=== PATIENT | female | born 1955 | race American Indian/Alaskan Native ===

== ENCOUNTER 2017-08-05 06:06 | Day surgery (SDC) | payer OTHER ==
[2017-07-29 11:16] VITALS: BMI 30.5
[2017-08-05] MEDS ORDERED: Iodixanol 320 MG/ML 200 ML BOTTLE IV ONE (06:47)
[2017-08-05] MEDS ORDERED: Phenylephrine 10 mg/ml Inj ONE (06:47)
[2017-08-05] MEDS ORDERED: Iodixanol 320 MG/ML 100 ML BOTTLE IV ONE (06:47)
[2017-08-05] MEDS ORDERED: Lidocaine 2% Inj (20ml) ONE (06:47)
[2017-08-05] MEDS ORDERED: Nitroglycerin 50mg in D5W 50 MG/250 ML BOTTLE IV ONE (06:48)
[2017-08-05] MEDS ORDERED: HEPARIN SODIUM/NS 2,000 ML IV ONE (06:48)
[2017-08-05] MEDS ORDERED: Iohexol 350mgl/ml 50 ML ONE (06:48)
[2017-08-05 06:51] LABS: BASO # 0.04 K/mm3 (0.0-2.0); BASO % 0.5 % (0.0-3.0); EOS # 0.4 (0.0-0.7); EOS % 4.5 % (1.5-5.0); GRAN # 3.85 (1.4-6.5); GRAN % 48.3 % (50.0-68.0); HEMOGLOBIN 12.7 g/dL (12.0-16.0); LYMPH # 3.1 (1.2-3.4); LYMPH % 38.6 % (22.0-35.0); MEAN CELL VOLUME 68.4 fl (80.0-105.0); MEAN CORPUSCULAR HEMOGLOBIN 21.1 pg (25.0-35.0); MEAN CORPUSCULAR HGB CONC 30.8 g/dl (31.0-37.0); MEAN PLATELET VOLUME 10.5 fl (7.0-11.0); MONO # 0.7 (0.1-0.6); MONO % 8.1 % (1.0-6.0); RBC 6.02 10^6/uL (3.5-6.1); RED CELL DISTRIBUTION WIDTH 15.4 % (11.5-14.5)
[2017-08-05 07:04] LABS: CALCIUM 10.3 mg/dL (8.4-10.5)
[2017-08-05 07:19] LABS: INR 1.09 (0.93-1.08); PARTIAL THROMBOPLASTIN TIME 30.9 Seconds (25.1-36.5); PROTHROMBIN TIME 12.6 SECONDS (9.4-12.5)
[2017-08-05] MEDS ORDERED: Midazolam 2 MG/2 ML VIAL ONE (08:04)
[2017-08-05] MEDS ORDERED: Iodixanol 320 mg/ml 150 ml Bottle IV ONE (08:07)
[2017-08-05] MEDS ORDERED: Sodium Chloride 0.45% 1,000 ML IV SCH ×2 (09:30→09:48)
--- NOTE | 2017-08-05 09:48 | CARD ---
APPROVED REPORT EKG Measurement Heart [id number] WA 170P54 [id number] <Conclusion> Normal sinus rhythm Possible Left atrial enlargement Cannot rule out Anterior infarct, age undetermined Abnormal ECG
[2017-08-05] MEDS: Insulin Reg-HIGH-Coverage SC SCH ×3 (11:30→23:01)
--- NOTE | 2017-08-05 17:18 | HP ---
HISTORY OF PRESENT ILLNESS: I know Macrina very well. She had an outpatient stress test, which was indeterminate. She has been having some shortness of breath from time to time, ended up with Dr Smith, had a cardiac cath and a stent placement this morning. I see her in the cardiac laborer tree tapping. She is resting comfortably in bed. PAST MEDICAL HISTORY: Diabetes, [place], CAD, hyperlipidemia, hypertension, anemia. She also has constipation. She is menopausal. PAST SURGICAL HISTORY: She had a hysterectomy 11 years ago for fibroids, cardiac cath with one stent 5 years ago. FAMILY HISTORY: Cancer. Also cancer with the mother. SOCIAL HISTORY: No smoking, no drinking, no drugs. REVIEW OF SYSTEMS: CONSTITUTIONAL: No acute vision or hearing changes. She has had some chest discomfort, some shortness of breath. Just not feeling well. Had a positive stress test. ABDOMEN: No nausea or vomiting. EXTREMITIES: No edema. PHYSICAL EXAMINATION: GENERAL: She wears glasses. Alert, awake and oriented x3. She is comfortable at this time. She has lied flat for 6 hours. Not anxious. Not depressed. No tremors. Understands what is going on. VITAL SIGNS: Temperature 98.2, 80 pulse, respiratory rate 20, 94% O2 sat, blood pressure is 200/137. Cardiology will address that and will adjust her medications. HEENT: Head is atraumatic, normocephalic. Throat is moist. NECK: Supple. HEART: Regular rate. LUNGS: Decreased breath sounds, but clear to auscultation. ABDOMEN: Soft, nontender. Positive bowel sounds. EXTREMITIES: No edema. ASSESSMENT: She is lying flat in the [facility], waiting to go to her room status post cardiac cath with stent placement. She has coronary artery disease. She also had some blood test done. LABORATORY DATA: She has 141 sodium, potassium 4.5, BUN is 23, creatinine 1.3, which is little bit up, GFR is 41, sugar is 279, calcium is 10.3. INR is 1.09. White count 8, 12.7 hemoglobin, 41.2 hematocrit with 325 platelets. PLAN: She will be moved to her room. She has lied flat for 6 hours. She has had a stent placement for CAD. She has renal insufficiency and diabetes. She will have IV fluids and insulin coverage. We will start up her medications tomorrow for diabetes and we will see what Dr. Smith, the home health aid, wants to do about her medications and her high blood pressure. I discussed this with family and the patient at length. Kraig Thomas DO
--- NOTE | 2017-08-05 18:45 | CARDCATH ---
PROCEDURE DATE: 08/05/2017 HISTORY: The patient is a 62-year-old woman who presents with an abnormal stress test. She has had a documented coronary artery disease and PTCA in the past. Her stress test reveals markedly depressed LV as well as new ischemic areas. Because of this, a cardiac catheterization was recommended. PROCEDURE: Left heart catheterization with coronary arteriography, left ventriculogram, followed by PTCA and stent of the LAD. The right femoral artery was cannulated with a 6-[place] sheath. There were no complications. I performed moderate sedation which included the presence of an independent trained observer who assisted in monitoring the patient's level of consciousness and physiologic status. After administration of Versed and fentanyl, my intra-service time was 30 minutes. The findings on catheterization revealed a left ventricle that was dilated and diffusely hypokinetic. Estimated ejection fraction is between 20% and 25%. There was no mitral regurgitation. Her coronary anatomy revealed a right dominant circulation. The RCA revealed diffuse intimal irregularities throughout its course. In the distal portion of the posterolateral branch, there is a 60% stenosis noted. The left main artery was unremarkable. The LAD was diffusely diseased with multiple critical lesions including a 70% mid LAD lesion as well as an 80% distal lesion. The first septal churn drill operator revealed 80% to 90% stenoses in its proximal portion. The circumflex artery and obtuse marginal branches revealed diffuse intimal irregularities. The first obtuse marginal branch revealed a patent stent in the midportion of the circumflex, there is a 90% stenosis noted. The patient was started on intravenous Angiomax on the fluoroscopic guide, the guiding catheter was placed in the ostium of the left main artery. An 0.014 ATW wire was used to cross the two lesions in the LAD. Drug-eluting stents were placed in the distal LAD as well as in the mid LAD stenoses. Each stent was at 2.5 in diameter and 8 mm in length. After balloon deflation and removal, repeat coronary arteriography revealed an excellent result with no residual stenosis and SULLY III flow. The wire was then brought back and placed into the septal churn drill operator. The septal churn drill operator lesion was first predilated with a 2.0 balloon, followed by PTCA and stent with a 2.25 x 8 mm drug-eluting stent. Repeat coronary arteriography revealed an excellent result with no residual stenosis and SULLY III flow. Manual compression was used to close the femoral artery site. In summary, the procedure was successful for PTCA and stent of 3 lesions in the LAD with drug-eluting stents. The first septal churn drill operator, the mid LAD as well as the distal portion of the LAD was stented. Cardiac catheterization reveals 3 lesions in the LAD as well as a critical lesion in the mid circumflex artery and a patent stent in the obtuse marginal branch. LV function revealed an EF of 20% to 25%. Given these findings, the patient will need to remain on aspirin indefinitely and Plavix for at least a year and undergo a strict cardiac risk reduction program. We will bring her back in 1 week for PTCA and stent of the circumflex artery. Dustin Smith MD
[2017-08-05 19:14] VITALS: RESP 18
--- NOTE | 2017-08-05 22:51 | CARD ---
APPROVED REPORT EKG Measurement Heart [id number] ID [id number] <Conclusion> Normal sinus rhythm Nonspecific T wave abnormality Abnormal ECG
[2017-08-06 05:50] VITALS: O2SAT 97
[2017-08-06 06:43] LABS: BASO # 0.01 K/mm3 (0.0-2.0); BASO % 0.1 % (0.0-3.0); EOS # 0.3 (0.0-0.7); EOS % 3.4 % (1.5-5.0); GRAN # 3.95 (1.4-6.5); GRAN % 53.9 % (50.0-68.0); HEMOGLOBIN 10.8 g/dL (12.0-16.0); LYMPH # 2.3 (1.2-3.4); LYMPH % 31.8 % (22.0-35.0); MEAN CORPUSCULAR HEMOGLOBIN 20.9 pg (25.0-35.0); MEAN CORPUSCULAR HGB CONC 30.8 g/dl (31.0-37.0); MONO # 0.8 (0.1-0.6); MONO % 10.8 % (1.0-6.0); RBC 5.16 10^6/uL (3.5-6.1); RED CELL DISTRIBUTION WIDTH 15.3 % (11.5-14.5); WHITE BLOOD COUNT 7.3 10^3/ul (4.5-11.0)
[2017-08-06 07:04] LABS: ALBUMIN 2.8 g/dL (3.0-4.8); ALT/SGPT 37 U/L (7-56); AST/SGOT 23 U/L (14-36); BLOOD UREA NITROGEN 16 mg/dL (7-21); CALCIUM 9.2 mg/dL (8.4-10.5); GFR AFRICAN-AMERICAN > 60; GFR NON-AFRICAN AMERICAN 50
[2017-08-06] MEDS: Insulin Reg-HIGH-Coverage SC SCH ×2 (08:11→13:06)
[2017-08-06 10:25] LABS: PLATELET COUNT 282 10^3/uL (120.0-450.0)
[2017-08-06 11:51] VITALS: BP 130/84; TEMP 98.2
--- NOTE | 2017-08-06 13:57 | PN ---
SUBJECTIVE: I am hoping that she will be able to be discharged today. She is presently comfortably in bed. Her blood pressure is a little bit high. I am going to add Norvasc 5 mg to her medication list. She is eating okay. PHYSICAL EXAMINATION VITAL SIGNS: Temperature 98, pulse 77, blood pressure 149/95. I put her on Norvasc 5 mg. Respiratory rate 18, oxygen saturation 97% on nasal cannula. HEENT: Head is atraumatic, normocephalic. HEART: Regular rate. LUNGS: Clear to auscultation. ABDOMEN: Soft. EXTREMITIES: No edema. MEDICATIONS: She will be on Ecotrin, insulin, Lipitor, Plavix and now, Norvasc. LABORATORY DATA: She has sodium 139, potassium 4.1, BUN 16, creatinine 1.1 and better, GFR is 50, sugar is 197, calcium is 9.2, total bilirubin is 0.5, AST is 22, ALT is 37, total protein is 5.8, INR is 1.09. White count 7.3, hemoglobin 10.8, hematocrit 35.1 with platelets 282,000. She is usually on metformin for the diabetes. We will continue that once she leaves the hospital but because of the IV dye, we held it and her blood sugar only went to 197, 266, 264 and she is on insulin coverage; so, when she leaves, start her metformin again. I am hoping she will be discharged today. She should start also the Norvasc. We will see how she does with that limiting the blood pressure. I will talk to Dr. Smith. had a stent replacement and now hypertension and diabetes. Kraig Thomas DO MTDDutch
--- NOTE | 2017-08-06 14:02 | PN ---
DATE: 08/06/2017 CARDIOLOGY FOLLOWUP SUBJECTIVE: The patient is chest pain free. PHYSICAL EXAMINATION: VITAL SIGNS: Blood pressure is 130/84, heart rates in the 70s. NECK: Negative JVD. LUNGS: Without rales. HEART: Reveals S1, S2. EXTREMITIES: Without edema. The right groin site is stable. LABORATORY DATA: Hemoglobin is 10.8. Chemistries: BUN and creatinine are unremarkable. Glucose is 197. IMPRESSION: 1. Stable post percutaneous transluminal coronary angioplasty and stent to 3 lesions in the left anterior descending. 2. Multivessel coronary artery disease. 3. Diabetes mellitus. 4. Hypercholesterolemia. 5. Hypertension. PLAN: Given these findings, the patient is stable for discharge. We will bring the patient back in 1 week for PTCA and stent of 90% circumflex artery. Dustin Smith MD
[2017-08-06 14:49] VITALS: PULSE 86
--- NOTE | 2017-08-06 19:47 | CARD ---
APPROVED REPORT EKG Measurement Heart [id number] [place] 162P57 [id number] <Conclusion> Normal sinus rhythm Possible Left atrial enlargement Nonspecific T wave abnormality Abnormal ECG
== END 2017-08-06 18:00 | disposition home or self-care (01) ==
LOC: CATH 06:06 → 2RNO 09:27 → CATH 08-06 18:00
PROVIDERS: ATTEND Family Medicine
DX: I25.10 Atherosclerotic heart disease of native coronary artery without angina pectoris (principal); I10 Essential (primary) hypertension; E11.9 Type 2 diabetes mellitus without complications; E78.00 Pure hypercholesterolemia, unspecified; D64.9 Anemia, unspecified; K59.00 Constipation, unspecified; Z78.0 Asymptomatic menopausal state; Z95.5 Presence of coronary angioplasty implant and graft; Z90.710 Acquired absence of both cervix and uterus
CPT/HCPCS: 36415 ×2; 80048; 80053; 82948 ×2; 85025 ×2; 85027; 85610; 85730; 86850; 86900; 93005 ×2; 93458; 99152; 99153; C1725; C1769 ×2; C1874 ×2; C1887 ×3; C2629; C9600; J0360; J0583; J1644; J2250; J2370; J3010; J7030; J7040; Q9967

== ENCOUNTER 2017-08-12 06:27 | Day surgery (SDC) | payer OTHER ==
[2017-08-12] MEDS ORDERED: Lidocaine 2% Inj (20ml) ONE (06:53)
[2017-08-12] MEDS ORDERED: Phenylephrine 10 mg/ml Inj ONE (06:53)
[2017-08-12] MEDS ORDERED: Midazolam 2 MG/2 ML VIAL ONE ×2 (06:54→07:44)
[2017-08-12] MEDS ORDERED: Iohexol 350mgl/ml 50 ML ONE (06:55)
[2017-08-12] MEDS ORDERED: Nitroglycerin 50mg in D5W 50 MG/250 ML BOTTLE IV ONE (06:55)
[2017-08-12] MEDS ORDERED: Iodixanol 320 MG/ML 100 ML BOTTLE IV ONE (06:55)
[2017-08-12] MEDS ORDERED: Iodixanol 320 MG/ML 200 ML BOTTLE IV ONE (06:55)
[2017-08-12] MEDS ORDERED: HEPARIN SODIUM/NS 2,000 ML IV ONE (06:55)
[2017-08-12 07:12] LABS: BASO # 0.03 K/mm3 (0.0-2.0); BASO % 0.4 % (0.0-3.0); EOS # 0.4 (0.0-0.7); EOS % 6.3 % (1.5-5.0); GRAN # 3.59 (1.4-6.5); GRAN % 53.8 % (50.0-68.0); HEMOGLOBIN 11.9 g/dL (12.0-16.0); LYMPH % 29.9 % (22.0-35.0); MEAN CELL VOLUME 68.7 fl (80.0-105.0); MEAN CORPUSCULAR HEMOGLOBIN 20.7 pg (25.0-35.0); MEAN CORPUSCULAR HGB CONC 30.1 g/dl (31.0-37.0); MEAN PLATELET VOLUME 10.2 fl (7.0-11.0); MONO # 0.6 (0.1-0.6); MONO % 9.6 % (1.0-6.0); RBC 5.75 10^6/uL (3.5-6.1); RED CELL DISTRIBUTION WIDTH 15.5 % (11.5-14.5); WHITE BLOOD COUNT 6.7 10^3/ul (4.5-11.0)
[2017-08-12 07:21] LABS: INR 1.05 (0.93-1.08); PARTIAL THROMBOPLASTIN TIME 30.9 Seconds (25.1-36.5); PROTHROMBIN TIME 12.1 SECONDS (9.4-12.5)
[2017-08-12] MEDS ORDERED: Sodium Chloride 0.9% 1,000 ML IV SCH (09:00)
--- NOTE | 2017-08-12 10:11 | CARD ---
APPROVED REPORT EKG Measurement Heart [id number] RI 174P55 [id number] <Conclusion> Normal sinus rhythm PRWP NSSTW changes No change
--- NOTE | 2017-08-12 10:49 | CARDCATH ---
PROCEDURE DATE: 08/12/2017 CARDIAC CATHETERIZATION AND PTCA HISTORY: The patient is a 62-year-old woman with multiple cardiac risk factors who was found to have multivessel CAD. She underwent three stents last week and presents for PTCA and stent of the circumflex artery. PROCEDURE: Coronary arteriography followed by PTCA and stent of the circumflex artery. The right femoral artery was cannulated with a 6-[place] sheath. There were no complications. The findings on catheterization revealed patent stents in the septal gas mask inspector, mid LAD as well as the distal LAD. The circumflex artery had a complex long 90% stenoses in the mid circumflex artery. I performed moderate sedation which included the presence of an independent trained observer that assisted in monitoring the patient's level of consciousness and physiologic status. After administration of Versed and fentanyl, my intra-service time was 30 minutes. The patient was started on intravenous Angiomax on the fluoroscopic guide, the guiding catheter was placed in the ostium of the left main artery. An 0.014 ATW wire was used to cross the multiple lesions in the circumflex artery. A 2.0 balloon was utilized to predilate the lesions at 14 atmospheres of pressure. A 200 mcg of IC nitroglycerin was given. This was followed by placement of 2.25 x 15 mm drug-eluting stent followed by a 2.25 x 12 mm drug-eluting stent. Both were deployed at 12 atmospheres of pressure. Repeat coronary arteriography revealed an excellent result with no residual stenosis and SULLY III flow. The patient tolerated the procedure well. Manual compression was used to close the femoral artery site. In summary, the procedure was successful PTCA and stent of a long critical lesion in the circumflex artery. A cardiac catheterization reveals patent stents in the septal gas mask inspector, mid LAD and distal LAD with the critical lesion in the circumflex artery noted. Given these findings, the patient will need to remain on aspirin indefinitely and Plavix for at least a year and undergo a strict cardiac risk reduction program which needs to include a cardiac rehab exercise program. Dustin Smith MD
[2017-08-12] MEDS: Insulin Reg-HIGH-Coverage SC SCH ×3 (12:30→21:47)
--- NOTE | 2017-08-12 12:50 | CARD ---
APPROVED REPORT EKG Measurement Heart [id number] [place] 174P57 [id number] <Conclusion> Normal sinus rhythm Possible Left atrial enlargement Nonspecific T wave abnormality Possible IMI, age unknown Prolonged QTc
--- NOTE | 2017-08-12 17:34 | HP ---
HISTORY OF PRESENT ILLNESS: I saw her pre cardiac cath and I also saw her in the room after the cardiac cath. Discussed at length with the family. She had a stent placed in a coronary artery today with Dr. Smith. She was here a week ago, had another one. At that time, it was advised to come in today for a second one and she did. She is resting comfortably in bed. PAST MEDICAL HISTORY: She has a past medical history of diabetes, [place], CAD, hyperlipidemia, hypertension, anemia with a family history of cancer. She is also constipated. She had a hysterectomy 11 years ago with fibroids, cardiac cath, multiple stents 5 years ago, stents last week and today. ALLERGIES: SHE HAS NO KNOWN DRUG ALLERGIES. REVIEW OF SYSTEMS: She is alert and oriented x3, comfortable, no acute distress at this time. No acute vision or hearing changes. No sore throat. No chest pain or palpitations. No shortness of breath or cough. No abdominal pain, nausea, vomiting, constipation, diarrhea. No skin issues to speak of. She can urinate okay. She is in good spirits. She is with her family. She is status post catheterization. This is a second stent placement in a week. MEDICATIONS: She is taking Zestril, potassium, Norvasc, Glucophage, Plavix, Lipitor, aspirin, Lopressor and Lasix at home. Dr. Smith put her on Ecotrin, Lipitor, Plavix and IV fluids. Because of the IV dye that they used, I will hold off on the diabetes medications right now. I will put her on insulin coverage. PHYSICAL EXAMINATION: VITAL SIGNS: 98 temp, 74 pulse, 135/86 blood pressure, 20 respiratory rate, 98% O2 sat on room air. HEENT: Head is atraumatic, normocephalic. Extraocular muscles are intact. Throat is moist. NECK: Supple. HEART: Regular rate. LUNGS: Decreased breath sounds, but clear. ABDOMEN: Soft, nontender. Positive bowel sounds. EXTREMITIES: No edema. She is lying flat at this time. SKIN: Her skin from what I could tell is intact. LYMPHATICS: No palpable appreciable lymphadenopathy. Thyroid midline. NEUROLOGIC: Cranial nerves II through XII grossly intact. Normal speech. LABORATORY DATA: She has a 6.7 white count, 11.9 hemoglobin, 39.5 hematocrit with 371 platelets. INR is 1.05. 140 sodium, potassium 4.8, BUN 17, creatinine 1.2, GFR is 45, sugar is 238, calcium is 10, triglycerides are 130, LDL is 37, HDL is 44. She had an EKG, which showed normal sinus rhythm, [place], poor R-wave progression, nonspecific ST-wave changes. No change. IMPRESSION: I will watch her overnight to lay flat for 6 hours. I will continue with the medications. I will start the diabetes medications tomorrow. I put per on insulin coverage for the time being. We will check her labs tomorrow. Macrina Tinoco with coronary artery disease, second stent in a week. Kraig Thomas DO
[2017-08-13 05:48] VITALS: BP 160/92; TEMP 98.7; O2SAT 94
[2017-08-13 06:20] LABS: BASO # 0.02 K/mm3 (0.0-2.0); BASO % 0.3 % (0.0-3.0); EOS # 0.6 (0.0-0.7); EOS % 7.2 % (1.5-5.0); GRAN # 4.59 (1.4-6.5); GRAN % 59.7 % (50.0-68.0); HEMOGLOBIN 11.5 g/dL (12.0-16.0); LYMPH # 1.9 (1.2-3.4); LYMPH % 24.1 % (22.0-35.0); MEAN CELL VOLUME 68.2 fl (80.0-105.0); MEAN CORPUSCULAR HEMOGLOBIN 20.4 pg (25.0-35.0); MEAN CORPUSCULAR HGB CONC 29.9 g/dl (31.0-37.0); MEAN PLATELET VOLUME 10.5 fl (7.0-11.0); MONO # 0.7 (0.1-0.6); MONO % 8.7 % (1.0-6.0); RBC 5.63 10^6/uL (3.5-6.1); RED CELL DISTRIBUTION WIDTH 15.4 % (11.5-14.5); WHITE BLOOD COUNT 7.7 10^3/ul (4.5-11.0)
[2017-08-13 06:34] LABS: BLOOD UREA NITROGEN 14 mg/dL (7-21); CALCIUM 9.4 mg/dL (8.4-10.5); GFR AFRICAN-AMERICAN > 60; GFR NON-AFRICAN AMERICAN 56
[2017-08-13] MEDS: Insulin Reg-HIGH-Coverage SC SCH (07:33)
[2017-08-13 09:38] VITALS: RESP 16; BMI 28.5
[2017-08-13 09:57] VITALS: PULSE 85
--- NOTE | 2017-08-13 10:08 | CARD ---
APPROVED REPORT EKG Measurement Heart [id number] CT 156P50 [id number] <Conclusion> Sinus rhythm with premature atrial complexes Nonspecific T wave abnormality Abnormal ECG
--- NOTE | 2017-08-13 10:51 | DS ---
HISTORY OF PRESENT ILLNESS: She is resting comfortably, sitting up, eating her breakfast. She is on Ecotrin, insulin coverage, Lipitor and Plavix. She had a stent and it was replaced with Dr. Smith for CAD. She is going to be going home today after Dr. Smith sees her this morning. PHYSICAL EXAMINATION: VITAL SIGNS: She has a 98.7 temp, 88 pulse, 160/92 blood pressure, 20 respiratory rate, 94% o2 sat on room air. HEENT: Head is atraumatic, normocephalic. HEART: Regular rate. LUNGS: Clear to auscultation. ABDOMEN: Soft. EXTREMITIES: No edema. MEDICATIONS: She is to go home on her regular medications she came in with. She has them at home. LABORATORY DATA: 7.7 white count, 11.5 hemoglobin, 30.4 hematocrit with 341 platelets. INR is 1.05. She has a 140 sodium, potassium 4.3, BUN 40, creatinine 1, GFR is 56, sugars is 174, calcium is 9.4. ASSESSMENT AND PLAN: She will follow up in the office in about a week. She did well and she has her medications at home, the same medications she came in with. I will see her in a week in the office. Kraig Thomas DO
--- NOTE | 2017-08-13 13:03 | PN ---
DATE: 08/13/2017 CARDIOLOGY FOLLOWUP SUBJECTIVE: The patient is chest pain free. The patient is ambulating without symptoms. PHYSICAL EXAMINATION: VITAL SIGNS: Blood pressure is 160/90, heart rates in the 80s. NECK: Negative JVD. LUNGS: Without rales. HEART: Reveals S1, S2. EXTREMITIES: Without edema. The groin site is stable. LABORATORY DATA: Hemoglobin is 11.5. Chemistries unremarkable. Glucose is 174. ASSESSMENT AND PLAN: 1. Stable post multivessel percutaneous transluminal coronary angioplasty and stent. 2. Multivessel coronary artery disease. 3. Diabetes mellitus. 4. Hypercholesterolemia. 5. Hypertension. Given these findings, the patient is stable for discharge. We will resume her antihypertensive medications. Followup and instructions have been given to the patient in detail. Dustin Smith MD
== END 2017-08-13 11:19 | disposition home or self-care (01) ==
LOC: CATH 06:27 → 2RNO 09:22 → CATH 08-13 11:19
PROVIDERS: ATTEND Internal Medicine Cardiovascular Disease
DX: I25.10 Atherosclerotic heart disease of native coronary artery without angina pectoris (principal); E11.9 Type 2 diabetes mellitus without complications; I10 Essential (primary) hypertension; E78.5 Hyperlipidemia, unspecified; D64.9 Anemia, unspecified; I25.2 Old myocardial infarction; Z95.5 Presence of coronary angioplasty implant and graft; Z79.84 Long term (current) use of oral hypoglycemic drugs; Z80.9 Family history of malignant neoplasm, unspecified
CPT/HCPCS: 36415 ×2; 80048 ×2; 80061; 82948 ×2; 85025 ×2; 85610; 85730; 86850; 86900; 93005 ×2; 99152; C1725; C1769 ×2; C1874 ×2; C1887; C2629; C9600; J0583; J1644; J2250; J3010; J7040 ×2; Q9967 ×2